=== PATIENT | male | born 1955 | race Caucasian/White ===

== ENCOUNTER → 2016-09-02 | Outpatient (CLI) | payer BC ==
[~2016-09-02] MED LIST: AMIT10TA6 PO; HYDR-3714 PO; LUTE15CA PO; MELATAB2 PO; ONDA4TAB10 SL; TAMS0.4C38 PO
[2016-09-02 11:44] LABS: BLOOD UREA NITROGEN 15 mg/dl (7-18); BUN/CREATININE RATIO 15.5 (10-20); CALCIUM 9.3 mg/dl (8.5-10.1); CARBON DIOXIDE 30 mmol/L (21-32); CHLORIDE 106 mmol/L (98-107); GLUCOSE 78 mg/dl (70-99); POTASSIUM 4.2 mmol/L (3.5-5.1); SODIUM 141 mmol/L (136-145)
[2016-09-02 11:48] LABS: PROSTATE SPECIFIC ANTIGEN < 0.010 ng/ml (0.000-4.000)
== END | disposition home or self-care (01) ==
LOC: C.LABBC 08:46
PROVIDERS: ATTEND Urology
DX: D49.519 Neoplasm of unspecified behavior of unspecified kidney (principal); C61 Malignant neoplasm of prostate

== ENCOUNTER 2016-10-13 17:20 | Emergency (ER) | payer BC ==
[~2016-10-13] VITALS: Ht 175.3 cm; Wt 68.2 kg
[~2016-10-13 17:20] MED LIST changes: -ONDA4TAB10 SL
[2016-10-13 17:40] VITALS: TEMP 36.3; Ht 175.3 cm; Wt 68.2 kg
[2016-10-13] MEDS ORDERED: MoRPHine SULFATE 10 MG/ML CARP/VIAL IV STA (18:56)
[2016-10-13] MEDS ORDERED: ONDANSETRON INJ 2 MG/ML 2 ML VIAL IV STA (18:56)
[2016-10-13] MEDS ORDERED: SODIUM CHLORIDE 0.9% 1000ML 1,000 ML IV STA (18:56)
[2016-10-13] MEDS ORDERED: MoRPHine SULFATE 4 MG/ML 1 ML CARP\\VIAL ONE (19:42)
[2016-10-13] MEDS ORDERED: MoRPHine SULFATE 2 MG/ML CARP ONE (19:42)
[2016-10-13 19:48] LABS: BASO % 0.1 %; BASO ABS # 0.01 K/uL (0-0.2); COMPLETE YES; HEMATOCRIT 47.6 % (42-52); IG% 0.3 %; LYMPH % 3.5 %; MEAN CELL VOLUME 90.2 fL (80-100); MEAN CORPUSCULAR HEMOGLOBIN 31.3 pg (25-34); MEAN CORPUSCULAR HGB CONC 34.7 g/dl (32-36); NEUT % 91.1 %; PLATELET COUNT 213 K/uL (130-400); RED BLOOD COUNT 5.28 M/uL (4.7-6.1); WHITE BLOOD COUNT 14.38 K/uL (4.8-10.8)
--- NOTE | 2016-10-13 19:59 | DIAGNOSTIC IMAGING REPORT ---
KUB CLINICAL HISTORY: right flank pain, hx stones COMPARISON STUDY: 05/09/2016 FINDINGS: There is no pathologic bowel dilatation. No urinary tract calculi are visualized on conventional radiographic imaging. IMPRESSION: 1. No evidence of pathologic bowel dilatation 2. No urinary tract calculi are visualized Electronically signed by: Abhijeet Mcdowell M.D. 10/13/2016 7:58 PM Dictated Date/Time: 10/13/2016 7:57 PM
[2016-10-13 20:13] LABS: BUN/CREATININE RATIO 13.9 (10-20); CALCIUM 9.6 mg/dl (8.5-10.1); CREATININE 1.2 mg/dl (0.60-1.40); POTASSIUM 4.2 mmol/L (3.5-5.1)
[2016-10-13 20:19] LABS: URINE APPEARANCE CLEAR (CLEAR); URINE BILIRUBIN NEG (NEG); URINE COLOR YELLOW; URINE NITRITE NEG (NEG); URINE PH >= 9.0 (4.5-7.5); URINE SPECIFIC GRAVITY 1.008 (1.000-1.030); UROBILINOGEN NEG (NEG); ZZUR CULT IF INDIC CLEAN CATCH NO
--- NOTE | 2016-10-13 20:19 | DIAGNOSTIC IMAGING REPORT ---
EXAMINATION: RENAL ULTRASOUND CLINICAL HISTORY: Right flank pain. History of calculi. COMPARISON STUDY: CT scan dated 05/17/2016 FINDINGS: The right kidney measures 12.4 cm. The left kidney measures 11.3 cm.. There is no evidence of hydronephrosis. There is a 2 cm lower pole right renal cyst. There is a small echogenic focus within the midpole the right kidney. A small calculus cannot be excluded. There is a 4 cm left renal cyst. There is a second 12 mm cyst. There is a tiny 3 mm echogenic focus within the left kidney. A tiny calculus cannot be excluded. There is a hyperechoic focus at the expected location of distal right ureter. A distal ureteral calculus cannot be excluded. No bladder calculi are visualized. IMPRESSION : 1. Bilateral renal cysts 2. Equivocal 5 mm calculus at the level of the right ureterovesical junction. No evidence of significant hydronephrosis. 3. Neither ureteral jet was visualized. 4. Clinical follow-up is recommended. A noncontrast CT scan could be obtained in follow-up to confirm or refute the presence of a distal right ureteral calculus Electronically signed by: Abhijeet Mcdowell M.D. 10/13/2016 8:18 PM Dictated Date/Time: 10/13/2016 8:14 PM
[2016-10-13 20:22] LABS: MANUAL MICROSCOPIC REQUIRED? NO; REVIEW REQ? NO
[2016-10-13 20:22] LABS: ALB/GLOB RATIO 1.1 (0.9-2)
[2016-10-13] MEDS ORDERED: TAMS0.4C38 PO (20:44)
[2016-10-13] MEDS ORDERED: ONDA4TAB10 SL (20:44)
--- NOTE | 2016-10-13 20:44 | EMERGENCY ROOM VISIT NOTE ---
History First contact with patient: 18:34 Chief Complaint: FLANK PAIN Stated Complaint: RIGHT SIDED PAIN, KIDNEY STONE History of Present Illness The patient is a 61 year old male who presents to the Emergency Room with complaints of right flank pain which began last night. The patient reports that the pain progressively worsened throughout the day. He reports 8/10 pain at this time. He reports associated urinary urgency, hematuria, nausea and vomiting. He has a history of calcium oxalate stones. He has seen Dr. Tanner in the past and has had a lithotripsy one year ago. The patient has not taken any medication for pain. He reports he does have a prescription for Potwin at home from a previous kidney stone, but was unable to take it due to vomiting. The patient denies any fevers/chills, chest pain, shortness of breath or changes in bowel movements. Review of Systems A complete 10-point Review of Systems was discussed with the patient, with pertinent positives and negatives listed in the History of Present Illness. All remaining Review of Systems questions can be considered negative unless otherwise specified. Past Medical/Surgical History Medical Problems: (1) Malignant melanoma Surgical Problems: (1) H/O foot surgery (2) S/P tonsillectomy and adenoidectomy (3) S/P wrist surgery Social History Smoking Status: Never Smoker Drug Use: none Marital Status: Housing Status: lives with family Occupation Status: retired Current/Historical Medications Scheduled Amitriptyline Hcl (Elavil), 10 MG PO HS Lutein-Zeaxanthin (Lutein), 1 CAP PO QPM Melatonin (Melatonin Maximum Strengt), 1 TAB PO HS Ondasetron Odt (Zofran Odt), 4 MG SL Q6H Tamsulosin Hcl (Flomax), 0.4 MG PO DAILY Scheduled PRN Hydrocodon/Acetaminophen 7.5MG/300MG (Vicodin Es (7.5MG/300MG)), 1 TAB PO Q6H PRN for Pain Allergies Coded Allergies: Levofloxacin (Verified Adverse Reaction, Unknown, GI UPSET, 10/13/16) Physical Exam Vital Signs Date Time Temp Pulse Resp B/P Pulse Ox O2 Delivery O2 Flow Rate FiO2 10/13/16 21:00 73 18 138/87 95 Room Air 10/13/16 17:40 36.3 69 18 143/85 100 Room Air Physical Exam VITALS: Vitals are noted on the nurse's note and reviewed by myself. Vital signs stable. GENERAL: This is a 61-year-old male, in no acute distress, nondiaphoretic, well- developed well-nourished. SKIN: Capillary reflex less than 2 seconds. HEENT: Normocephalic. PERRLA. EOMI. Nares patent. Mucous membranes moist. Neck is supple without nuchal rigidity. HEART: Regular rate and rhythm without murmurs gallops or rubs. LUNGS: Clear to auscultation bilaterally without wheezes, rales or rhonchi. ABDOMEN: Positive bowel sounds x 4. Soft, mild tenderness of the right lower quadrant. No guarding or rebound tenderness. MUSCULOSKELETAL: Right CVA tenderness. NEURO: Patient was alert and oriented to person place and time. Medical Decision & Procedures ER Provider Diagnostic Interpretation: KUB IMPRESSION: 1. No evidence of pathologic bowel dilatation 2. No urinary tract calculi are visualized EXAMINATION: RENAL ULTRASOUND IMPRESSION : 1. Bilateral renal cysts 2. Equivocal 5 mm calculus at the level of the right ureterovesical junction. No evidence of significant hydronephrosis. 3. Neither ureteral jet was visualized. 4. Clinical follow-up is recommended. A noncontrast CT scan could be obtained in follow-up to confirm or refute the presence of a distal right ureteral calculus Laboratory Results 10/13/16 19:30 Red Blood Count 5.28, Mean Corpuscular Volume 90.2, Mean Corpuscular Hemoglobin 31.3, Mean Corpuscular Hemoglobin Concent 34.7, Mean Platelet Volume 10.0, Neutrophils (%) (Auto) 91.1, Lymphocytes (%) (Auto) 3.5, Monocytes (%) (Auto) 5.0, Eosinophils (%) (Auto) 0.0, Basophils (%) (Auto) 0.1, Neutrophils # (Auto) 13.10, Lymphocytes # (Auto) 0.50, Monocytes # (Auto) 0.72, Eosinophils # (Auto) 0.00, Basophils # (Auto) 0.01 10/13/16 19:30 Test 10/13/16 19:30 10/13/16 19:49 White Blood Count 14.38 K/uL (4.8-10.8) Red Blood Count 5.28 M/uL (4.7-6.1) Hemoglobin 16.5 g/dL (14.0-18.0) Hematocrit 47.6 % (42-52) Mean Corpuscular Volume 90.2 fL (80-100) Mean Corpuscular Hemoglobin 31.3 pg (25-34) Mean Corpuscular Hemoglobin Concent 34.7 g/dl (32-36) Platelet Count 213 K/uL (130-400) Mean Platelet Volume 10.0 fL (7.4-10.4) Neutrophils (%) (Auto) 91.1 % Lymphocytes (%) (Auto) 3.5 % Monocytes (%) (Auto) 5.0 % Eosinophils (%) (Auto) 0.0 % Basophils (%) (Auto) 0.1 % Neutrophils # (Auto) 13.10 K/uL (1.4-6.5) Lymphocytes # (Auto) 0.50 K/uL (1.2-3.4) Monocytes # (Auto) 0.72 K/uL (0.11-0.59) Eosinophils # (Auto) 0.00 K/uL (0-0.5) Basophils # (Auto) 0.01 K/uL (0-0.2) RDW Standard Deviation 42.5 fL (36.4-46.3) RDW Coefficient of Variation 12.9 % (11.5-14.5) Immature Granulocyte % (Auto) 0.3 % Immature Granulocyte # (Auto) 0.05 K/uL (0.00-0.02) Anion Gap 7.0 mmol/L (3-11) Est Creatinine Clear Calc Drug Dose 62.4 ml/min Estimated GFR () 75.2 Estimated GFR (Non- 64.9 BUN/Creatinine Ratio 13.9 (10-20) Calcium Level 9.6 mg/dl (8.5-10.1) Total Bilirubin 0.7 mg/dl (0.2-1) Aspartate Amino Transf (AST/SGOT) 27 U/L (15-37) Alanine Aminotransferase (ALT/SGPT) 35 U/L (12-78) Alkaline Phosphatase 128 U/L (45-117) Total Protein 7.9 gm/dl (6.4-8.2) Albumin 4.2 gm/dl (3.4-5.0) Globulin 3.7 gm/dl (2.5-4.0) Albumin/Globulin Ratio 1.1 (0.9-2) Lipase 90 U/L (73-393) Urine Color YELLOW Urine Appearance CLEAR (CLEAR) Urine pH >= 9.0 (4.5-7.5) Urine Specific Laura 1.008 (1.000-1.030) Urine Protein NEG (NEG) Urine Glucose (UA) NEG (NEG) Urine Ketones TRACE (NEG) Urine Occult Blood 3+ (NEG) Urine Nitrite NEG (NEG) Urine Bilirubin NEG (NEG) Urine Urobilinogen NEG (NEG) Urine Leukocyte Esterase TRACE (NEG) Urine WBC (Auto) 1-5 /hpf (0-5) Urine RBC (Auto) >30 /hpf (0-4) Urine Hyaline Casts (Auto) 1-5 /lpf (0-5) Urine Epithelial Cells (Auto) 10-20 /lpf (0-5) Urine Bacteria (Auto) NEG (NEG) Medications Administered Medications (Trade) Dose Ordered Sig/Daniel Route Start Time Stop Time Status Last Admin Dose Admin Sodium Chloride (Nss 1000ml) 1,000 ml @ 999 mls/hr Q1H1M STAT IV 10/13/16 18:56 10/13/16 19:56 DC 10/13/16 19:30 999 MLS/HR Ondansetron HCl (ZOFRAN ODT 4MG Home Pack) 1 homepack [employer] ONCE .ROUTE 10/13/16 21:02 10/13/16 21:06 DC 10/13/16 21:02 1 HOMEPACK Medical Decision Differential diagnosis includes renal conscious, pyelonephritis, pancreatitis, cholecystitis, musculoskeletal pain, among others. The patient was evaluated as above. Labs were drawn and IV access was obtained. Imaging studies were performed and read by radiology as above. The patient was medicated with 1 L normal saline solution. I did order 4 mg Zofran and 6 mg morphine, but the patient's pain resolved before was given. The patient was reassessed multiple times during their stay in the emergency department and remained in stable condition. The patient is a 61-year-old male with a past medical history of kidney stones who presents today complaining of right flank pain. Labs revealed a moderate leukocytosis consistent with vomiting. No concerning anemia or electrolyte abnormalities. Kidney liver functions within normal limits. Urinalysis was not suggestive of infection. There was blood in the urine. KUB was unremarkable, but renal ultrasound was suggestive of a 5 mm distal ureteral stone. The patient was informed of the findings. He does have a prescription for Potwin at home, but will be given prescription for Flomax and Zofran. He was instructed to follow-up with his urologist and primary care provider as needed or return for worsening of his current condition. Based on the patient's presentation, lab results, and imaging studies, I feel the patient is stable for outpatient treatment. Discharge instructions were reviewed with the patient. The patient verbalized understanding of my assessment and treatment plan and was discharged home in good condition. Impression Primary Impression: Right ureteral calculus Departure Information Dispostion Home / Self-Care Condition GOOD Prescriptions Tamsulosin Hcl (FLOMAX) 0.4 Mg Cap 0.4 MG PO DAILY for 14 Days, #14 CAP Prov: Roxana Arias PA-C 10/13/16 Ondasetron Odt (ZOFRAN ODT) 4 Mg Tab 4 MG SL Q6H for Nausea, #15 TAB Prov: Roxana Arias PA-C 10/13/16 Referrals Esvin David M.D. (PCP) Dom Tanner M.D. Patient Instructions My [facility] Additional Instructions You have been treated in the Emergency Department today for a Kidney Stone ( Nephrolithiasis). Continue Potwin as needed for pain. You have been prescribed Zofran to be used for any nausea or vomiting. Take as prescribed. You have been prescribed Flomax 0.4 mg to be taken ONCE daily. This medicine has been prescribed as it can help relax the smooth muscles of the urinary tract increasing transit time of the kidney stone. For pain control, you can use the following [id number] medicines (if >12 yo): - Regular strength (325mg/tab) Tylenol (acetaminophen) 2 tabs every 4-6 hours as needed. Do not exceed 12 tablets in a 24 hour period. Avoid taking more than 4 grams (4000 mg) of Tylenol per day. This includes any other sources of acetaminophen you may take on a regular basis. - Regular strength (200 mg/tab) Advil (ibuprofen) 1-2 tabs every 4-6 hours as needed. Do not exceed a dose of 3200 mg per day. You have been provided a strainer and specimen collection cup. You should strain your urine to collect any passed stones. Your stones can be placed into the specimen cup and taken to your Urologist for further evaluation. You have been provided the contact information for the on-call Urologist. You should contact the Urologist's office tomorrow to establish a follow-up appointment from today's Emergency Department visit. Return to the Emergency Department if your symptoms persist despite the treatment plan outlined above or if you develop the following symptoms: intractable pain, fever, chills, or large amounts of blood in your urine.
[2016-10-13 21:00] VITALS: BP 138/87; PULSE 73; O2SAT 95
[2016-10-13] MEDS ORDERED: ONDANSETRON HOME PACK 4MG OD TAB ONE (21:02)
[2016-10-13] MEDS ORDERED: ONDANSETRON HOME PACK 4MG OD TAB PO ONE (21:15)
== END 2016-10-13 20:17 | disposition home or self-care (01) ==
LOC: C.EDB 17:22 → C.EDC 20:17
DX: N20.1 Calculus of ureter (principal)

== ENCOUNTER → 2016-10-21 | Outpatient (CLI) | payer BC ==
[~2016-10-21] MED LIST changes: +ONDA4TAB10 SL
--- NOTE | 2016-10-21 08:16 | DIAGNOSTIC IMAGING REPORT ---
CT OF THE ABDOMEN AND PELVIS WITHOUT CONTRAST CLINICAL HISTORY: Nephrolithiasis. Right flank pain. Ureteral stone. COMPARISON STUDY: CT of the abdomen and pelvis May 17, 2016 and renal ultrasound and KUB October 13, 2016. TECHNIQUE: Axial images of the abdomen and pelvis were obtained without IV contrast. Images were reviewed in the axial, sagittal, and coronal planes. FINDINGS: Visualized portions of the lower chest demonstrate innumerable calcified granulomas within the lungs. Unenhanced images of the spleen, adrenal glands and pancreas are normal. Hypodense hepatic lesions are suboptimally assessed on this unenhanced exam but were present on earlier studies and likely reflect cysts. These are benign. There is no hydronephrosis. No renal, ureteral or bladder calculi are present. Numerous renal lesions were shown to represent cysts on prior contrast enhanced studies. A 9 mm hypodense lesion arising from the upper pole of the left kidney is unchanged. This likely reflects a hyperdense cyst. No enlarged lymph nodes are present. There is no evidence for a bowel obstruction. No suspicious skeletal lesions are identified. IMPRESSION: 1. No urinary calculi or hydronephrosis. 2. Multiple bilateral renal cysts. 3. No acute process within the abdomen or pelvis on unenhanced exam. Electronically signed by: Roberto Uriarte M.D. 10/21/2016 8:15 AM Dictated Date/Time: 10/21/2016 8:02 AM
== END | disposition home or self-care (01) ==
LOC: C.CTS 07:47
PROVIDERS: ATTEND Urology
DX: N20.2 Calculus of kidney with calculus of ureter (principal); N28.1 Cyst of kidney, acquired

== ENCOUNTER → 2017-02-20 | Outpatient (CLI) | payer BC ==
[~2017-02-20] MED LIST changes: -TAMS0.4C38 PO
--- NOTE | 2017-02-20 09:11 | DIAGNOSTIC IMAGING REPORT ---
KUB CLINICAL HISTORY: 61 years-old Male presenting with nephrolithiasis. TECHNIQUE: Single supine view of the abdomen was obtained. COMPARISON: CT from 10/21/2016. FINDINGS: No calcification to suggest nephrolithiasis. Moderate stool burden. No bowel obstruction. No evidence of free intraperitoneal gas, pneumatosis, or portal venous gas. Osseous structures normal. IMPRESSION: 1. No intra-abdominal calculus to suggest nephrolithiasis. Electronically signed by: Yaron Salomon M.D. 02/20/2017 9:09 AM Dictated Date/Time: 02/20/2017 9:06 AM
== END | disposition home or self-care (01) ==
LOC: C.RADBC 08:38
PROVIDERS: ATTEND Nurse Practitioner Adult Health
DX: C61 Malignant neoplasm of prostate (principal); Z11.59 Encounter for screening for other viral diseases; N20.0 Calculus of kidney

== ENCOUNTER → 2017-10-05 | Outpatient (CLI) | payer BC ==
[~2017-10-05] MED LIST changes: -ONDA4TAB10 SL
--- NOTE | 2017-10-05 09:42 | DIAGNOSTIC IMAGING REPORT ---
KUB CLINICAL HISTORY: N20.0 Nephrolithiasis nephrocalcinosis COMPARISON STUDY: 02/20/2017 FINDINGS: Nonobstructive bowel pattern. No evidence for nephrocalcinosis. IMPRESSION: Normal study. No evidence for nephrocalcinosis. No change from the prior study. The above report was generated using voice recognition software. It may contain grammatical, syntax or spelling errors. Electronically signed by: Bakari Mosqueda M.D. 10/05/2017 9:41 AM Dictated Date/Time: 10/05/2017 9:40 AM
== END | disposition home or self-care (01) ==
LOC: C.RADBC 09:27
PROVIDERS: ATTEND Nurse Practitioner Adult Health
DX: N20.0 Calculus of kidney (principal); C61 Malignant neoplasm of prostate